=== PATIENT | male | born 1965 | race Caucasian/White ===

== ENCOUNTER 2019-11-16 14:54 | Inpatient (IN) | payer OTHER ==
[~2019-11-16] VITALS: Ht 172.7 cm; Wt 72.6 kg
[2019-11-16] MEDS ORDERED: PIPER-TAZ 3.375 GM 50 ML IV STA (15:28)
[2019-11-16] MEDS ORDERED: SODIUM CHLORIDE 0.9% 1000ML 1,000 ML IV STA (15:28)
[2019-11-16] MEDS ORDERED: ONDANSETRON HCL INJ 2MG/ML 2ML 2 MG/ML VIAL IV STA (15:28)
[2019-11-16] MEDS ORDERED: MORPHINE SULFATE INJ 4 MG/ML INJ 1ML IV STA (15:28)
--- NOTE | 2019-11-16 15:35 | Emergency Department Note ---
History of Present Illnes History of Present Illness Chief Complaint: Skin Rash or Abscess History of Present Illness This is a 54 year old male . c/o poss insect bite to r knee c/o pain to knee and lower leg noted redness swelling r knee and lower leg sx x 1 wk Historian: Patient Arrival Mode: Car Onset (how long ago): week(s) (1) Location: right knee / lower leg Quality: mod Radiation: non-radiation, back, neck, extremity, abdomen, periumbilical, flank, proximal, distal, other Severity: moderate Onset quality: gradual Duration (how long): week(s) (1 wk=) Progression: worsening Context: recent illness, recent surgery, recent immobilization, recent travel, trauma/injury, new medications, hx of DVT/PE, non-compliance w/ medications, other Relieving factors: none Exacerbating factors: none Treatments prior to arrival: none Past Medical/Family History Physician Review I have reviewed the patient's past medical and family history. Any updates have been documented here. Past Medical History Recent Fever: Yes Clinical Suspicion of Infectio: Yes New/Unexplained Change in Ment: No Past Medical History: COPD Other Surgery: legs from trauma age 15, lungs puncture, cheeks. Social History Alcohol Use: None Any Illegal Drug Use: No TB Exposure/Symptoms: No Physically hurt or threatened: No Family History Family history of heart diseas: No Other Last Tetanus: ood Any Pre-Existing Lines (PICC,: No Review of Systems Review of Systems Constitutional: no symptoms EENTM: no symptoms Cardiovascular: no symptoms Respiratory: no symptoms Gastrointestinal: no symptoms Genitourinary: no symptoms Musculoskeletal: joint pain (r knee), joint swelling (r knee), other (This is a 54 year old male . c/o poss insect bite to r knee c/o pain to knee and lower leg noted redness swelling r knee and lower leg sx x 1 wk ) Neurological: no symptoms Psychological: no symptoms Endocrine: no symptoms Hematological/Lymphatic: no symptoms Review of other systems All other systems reviewed and negative. Physical Exam Related Data Allergies: Coded Allergies: No Known Allergies (Unverified , 11/16/19) Vital signs reviewed: Yes Physical Exam CONSTITUTIONAL Constitutional: well-developed, well-nourished HENT HENT: normocephalic, atraumatic, oropharynx clear/moist, nose normal HENT L/R: left ext ear normal, right ext ear normal EYES Eyes: PERRL, conjunctivae normal NECK Neck: ROM normal PULMONARY Pulmonary: effort normal, breath sounds normal CARDIOVASCULAR Cardiovascular: regular rhythm, heart sounds normal, capillary refill normal, normal rate GASTROINTESTINAL Abdominal: soft, nontender, bowel sounds normal GENITOURINARY Genitourinary: exam deferred SKIN Skin: warm, dry, other (This is a 54 year old male . c/o poss insect bite to r knee c/o pain to knee and lower leg noted redness swelling r knee and lower leg sx x 1 wk exam c/w cellulitis lower leg and abscess r knee ) MUSCULOSKELETAL Musculoskeletal: ROM normal, tenderness, swelling, other (erythema r knee and lower ext - noted abscess to r knee ) NEUROLOGICAL Neurological: alert, oriented x 3, no gross motor or sensory deficits PSYCHOLOGICAL Psychological: mood/affect normal, judgement normal Exam - additional comments septic joint not suspected at this time no distal neuro deficits noted pedal pulses += bilat on exam noted abscess to r knee / noted cellulitis and swelling to r lower leg as well Results Laboratory Laboratory Laboratory Tests Test 11/16/19 15:30 White Blood Count 15.11 x10e3/uL (4.8-10.8) Red Blood Count 3.79 x10e6/uL (4.3-5.7) Hemoglobin 12.9 g/dL (14.0-18.0) Hematocrit 38.5 % (38.2-49.6) Mean Corpuscular Volume 101.6 fL (81-99) Mean Corpuscular Hemoglobin 34.0 pg (28-32) Mean Corpuscular Hemoglobin Concent 33.5 g/dL (31-35) Red Cell Distribution Width 12.6 % (11.7-14.4) Platelet Count 250 x10e3/uL (140-360) Neutrophils (%) (Auto) 83.1 % (38.7-80.0) Lymphocytes (%) (Auto) 8.1 % (18.0-39.1) Monocytes (%) (Auto) 8.1 % (4.4-11.3) Eosinophils (%) (Auto) 0.1 % (0.0-6.0) Basophils (%) (Auto) 0.2 % (0.0-1.0) Neutrophils # (Auto) 12.6 (2.1-6.9) Lymphocytes # (Auto) 1.2 (1.0-3.2) Monocytes # (Auto) 1.2 (0.2-0.8) Eosinophils # (Auto) 0.0 (0.0-0.4) Basophils # (Auto) 0.0 (0.0-0.1) Absolute Immature Granulocyte (auto 0.06 x10e3/uL (0-0.1) Prothrombin Time 13.1 seconds (11.9-14.5) Prothromb Time International Ratio 0.94 Activated Partial Thromboplast Time 29.7 seconds (23.8-35.5) Sodium Level 136 mmol/L (136-145) Potassium Level 3.6 mmol/L (3.5-5.1) Chloride Level 104 mmol/L (98-107) Carbon Dioxide Level 19 mmol/L (22-29) Anion Gap 16.6 mmol/L (8-16) Blood Urea Nitrogen 15 mg/dL (7-26) Creatinine 0.78 mg/dL (0.72-1.25) Estimat Glomerular Filtration Rate > 60 ML/MIN (60-) BUN/Creatinine Ratio 19 (6-25) Glucose Level 108 mg/dL (74-118) Lactic Acid Level 1.2 mmol/L (0.5-2.0) Calcium Level 9.2 mg/dL (8.4-10.2) Total Bilirubin 0.7 mg/dL (0.2-1.2) Aspartate Amino Transf (AST/SGOT) 19 IU/L (5-34) Alanine Aminotransferase (ALT/SGPT) 18 IU/L (0-55) Alkaline Phosphatase 82 IU/L (40-150) Creatine Kinase 73 IU/L (30-200) Creatine Kinase MB 0.80 ng/mL (0-5.0) Troponin I 0.018 ng/mL (0-0.300) Total Protein 7.4 g/dL (6.5-8.1) Albumin 3.4 g/dL (3.5-5.0) Globulin 4.0 g/dL (2.3-3.5) Albumin/Globulin Ratio 0.9 (0.8-2.0) Laboratory Tests Test 11/16/19 15:30 White Blood Count 15.11 x10e3/uL (4.8-10.8) Red Blood Count 3.79 x10e6/uL (4.3-5.7) Hemoglobin 12.9 g/dL (14.0-18.0) Hematocrit 38.5 % (38.2-49.6) Mean Corpuscular Volume 101.6 fL (81-99) Mean Corpuscular Hemoglobin 34.0 pg (28-32) Mean Corpuscular Hemoglobin Concent 33.5 g/dL (31-35) Red Cell Distribution Width 12.6 % (11.7-14.4) Platelet Count 250 x10e3/uL (140-360) Neutrophils (%) (Auto) 83.1 % (38.7-80.0) Lymphocytes (%) (Auto) 8.1 % (18.0-39.1) Monocytes (%) (Auto) 8.1 % (4.4-11.3) Eosinophils (%) (Auto) 0.1 % (0.0-6.0) Basophils (%) (Auto) 0.2 % (0.0-1.0) Neutrophils # (Auto) 12.6 (2.1-6.9) Lymphocytes # (Auto) 1.2 (1.0-3.2) Monocytes # (Auto) 1.2 (0.2-0.8) Eosinophils # (Auto) 0.0 (0.0-0.4) Basophils # (Auto) 0.0 (0.0-0.1) Absolute Immature Granulocyte (auto 0.06 x10e3/uL (0-0.1) Prothrombin Time 13.1 seconds (11.9-14.5) Prothromb Time International Ratio 0.94 Activated Partial Thromboplast Time 29.7 seconds (23.8-35.5) Sodium Level 136 mmol/L (136-145) Potassium Level 3.6 mmol/L (3.5-5.1) Chloride Level 104 mmol/L (98-107) Carbon Dioxide Level 19 mmol/L (22-29) Anion Gap 16.6 mmol/L (8-16) Blood Urea Nitrogen 15 mg/dL (7-26) Creatinine 0.78 mg/dL (0.72-1.25) Estimat Glomerular Filtration Rate > 60 ML/MIN (60-) BUN/Creatinine Ratio 19 (6-25) Glucose Level 108 mg/dL (74-118) Lactic Acid Level 1.2 mmol/L (0.5-2.0) Calcium Level 9.2 mg/dL (8.4-10.2) Total Bilirubin 0.7 mg/dL (0.2-1.2) Aspartate Amino Transf (AST/SGOT) 19 IU/L (5-34) Alanine Aminotransferase (ALT/SGPT) 18 IU/L (0-55) Alkaline Phosphatase 82 IU/L (40-150) Creatine Kinase 73 IU/L (30-200) Creatine Kinase MB 0.80 ng/mL (0-5.0) Troponin I 0.018 ng/mL (0-0.300) Total Protein 7.4 g/dL (6.5-8.1) Albumin 3.4 g/dL (3.5-5.0) Globulin 4.0 g/dL (2.3-3.5) Albumin/Globulin Ratio 0.9 (0.8-2.0) Lab results reviewed: Yes Imaging Impressions IMPRESSION: Prepatellar soft tissue swelling. Otherwise, no acute radiographic abnormality identified within the right knee. Signed by: Dr. Joseph Clark MD on 11/16/2019 4:30 PM Dictated By: JOSEPH CLARK MD Electronically Signed By: JOSEPH MOSELEY REPORT STATUS: Signed EXAM: CHEST SINGLE (PORTABLE) DATE: 11/16/2019 3:47 PM INDICATION: Spider bite COMPARISON: None FINDINGS/IMPRESSION: The trachea is midline. There are mildly increased bibasilar opacities which may reflect atelectasis. There is blunting of the costophrenic angles and trace effusions are possible. There is no evidence for large focal consolidation, pneumothorax, or significant volume effusion. The cardiomediastinal silhouette and pulmonary vasculature are within normal limits. No acute osseous abnormality is identified. The surrounding soft tissues are unremarkable. Signed by: Dr. Jospeh Clark MD on 11/16/2019 4:26 PM Dictated By: JOSEPH CLARK MD [id number] Transcribed By: ASHLY on 11/16/19 1626 Imaging Comments no gas on x-ray Critical Care Time Subsequent provider I assumed direction of critical care for this patient from another provider of my specialty. Assessment & Plan Reassessment Reassessment time: 15:33 Reassessment This is a 54 year old male . c/o poss insect bite to r knee c/o pain to knee and lower leg noted redness swelling r knee and lower leg sx x 1 wk - exam c/w cellulitis r lower leg and abscess to r knee - lab rad ordered pt medicated w/ zosyn vanc ns morphine zofran Assessment & Plan Final Impression: (1) Cellulitis (2) Abscess Assessment & Plan discussed lab rad results plan of care and need for admit spoke w/ Dr Cleary will admit spoke w/ Dr Rae will consult NPO after MN will take to surgery Depart Disposition: ADMITTED AUSTEN BERGER Nov 16, 2019 15:35
[2019-11-16 16:01] LABS: BASOPHILS % 0.2 % (0.0-1.0); EOSINOPHILS % 0.1 % (0.0-6.0); HEMATOCRIT 38.5 % (38.2-49.6); HEMOGLOBIN 12.9 g/dL (14.0-18.0); LYMPHOCYTES # (AUTO) 1.2 (1.0-3.2); LYMPHOCYTES % 8.1 % (18.0-39.1); MEAN CORPUSCULAR HGB CONC 33.5 g/dL (31-35); MEAN CORPUSCULAR VOLUME 101.6 fL (81-99); MONOCYTES # (AUTO) 1.2 (0.2-0.8); MONOCYTES % 8.1 % (4.4-11.3); NEUTROPHILS # (AUTO) 12.6 (2.1-6.9); NEUTROPHILS % 83.1 % (38.7-80.0); PLATELET COUNT 250 x10e3/uL (140-360); RED BLOOD COUNT 3.79 x10e6/uL (4.3-5.7); RED CELL DISTRIBUTION WIDTH 12.6 % (11.7-14.4)
[2019-11-16 16:22] LABS: ALANINE AMINOTRANSFERASE 18 IU/L (0-55); ALBUMIN 3.4 g/dL (3.5-5.0); ALBUMIN/GLOBULIN RATIO 0.9 (0.8-2.0); ALKALINE PHOSPHATASE 82 IU/L (40-150); ANION GAP 16.6 mmol/L (8-16); BLOOD UREA NITROGEN 15 mg/dL (7-26); BUN/CREATININE RATIO 19 (6-25); CALCIUM 9.2 mg/dL (8.4-10.2); CARBON DIOXIDE 19 mmol/L (22-29); CHLORIDE 104 mmol/L (98-107); CREATINE KINASE 73 IU/L (30-200); CREATININE, SERUM 0.78 mg/dL (0.72-1.25); EST GLOMERULAR FILTRATION RATE > 60 ML/MIN (60-); GLUCOSE 108 mg/dL (74-118); POTASSIUM 3.6 mmol/L (3.5-5.1); SODIUM 136 mmol/L (136-145)
[2019-11-16 16:26] LABS: INR 0.94; PROTHROMBIN TIME 13.1 seconds (11.9-14.5)
[2019-11-16 16:27] LABS: PARTIAL THROMBOPLASTIN TIME 29.7 seconds (23.8-35.5)
[2019-11-16] MEDS ORDERED: VANCOMYCIN 1GM/NS 250 ML 250 ML IV ONE ×2 (16:30→16:45)
--- NOTE | 2019-11-16 16:30 | Diagnostic Imaging Report ---
EXAM: CHEST SINGLE (PORTABLE) DATE: 11/16/2019 3:47 PM INDICATION: Spider bite COMPARISON: None FINDINGS/IMPRESSION: The trachea is midline. There are mildly increased bibasilar opacities which may reflect atelectasis. There is blunting of the costophrenic angles and trace effusions are possible. There is no evidence for large focal consolidation, pneumothorax, or significant volume effusion. The cardiomediastinal silhouette and pulmonary vasculature are within normal limits. No acute osseous abnormality is identified. The surrounding soft tissues are unremarkable. Signed by: Dr. Lemuel Clark MD on 11/16/2019 4:26 PM
--- NOTE | 2019-11-16 16:33 | Diagnostic Imaging Report ---
EXAM: KNEE RIGHT THREE VIEWS DATE: 11/16/2019 3:50 PM INDICATION: Swelling, spider bite. COMPARISON: None FINDINGS: There is no evidence for acute fracture or dislocation. Bony mineralization is within normal limits. No focal lytic or blastic abnormality is identified. The joint spaces are relatively well-preserved. Prepatellar soft tissue swelling noted without evidence for soft tissue gas, significant joint effusion, or radiopaque foreign body. IMPRESSION: Prepatellar soft tissue swelling. Otherwise, no acute radiographic abnormality identified within the right knee. Signed by: Dr. Lemuel Clark MD on 11/16/2019 4:30 PM
[2019-11-16] MEDS ORDERED: SODIUM CHLORIDE 0.9% 1000ML 1,000 ML IV SCH (16:45)
[2019-11-16] MEDS ORDERED: TETANUS/DIPHTHERIA TOX ADULT 0.5 ML SYR IM ONE (16:45)
[2019-11-16 16:54] LABS: B-TYPE NATRIURETIC PEPTIDE2 < 10.0 pg/mL (0-100)
--- OUTSIDE RECORDS SUMMARY | 2019-11-16 17:23 | XMS REPORT | Continuity of Care Document ---
Author Author [facility] t Organization [facility] Address [address] [place] [address] Phone Unavailable Care Team Providers Care Psychiatry Resident Name Role Phone Asked, Pcp No PCP Unavailable AB MOTTA, AUSTEN Attphys Unavailable Problems This patient has no known problems. Allergies, Adverse Reactions, Alerts This patient has no known allergies or adverse reactions. Social History Social Habit Start Date Stop Date Quantity Comments Source Sex Assigned At [facility] [place] Medications This patient has no known medications. Procedures This patient has no known procedures. Plan of Care Planned Activity Planned Date Details Comments Source Future Scheduled Test 2020-01-09 00:00:00 INFLUENZA VACCINE [code = INFLUENZA VACCINE] [facility] Future Scheduled Test 2013 00:00:00 COLONOSCOPY SCREEN ING [code = COLONOSCOPY SCREENING] [facility] Future Scheduled Test 2013 00:00:00 SHINGLES VACCINES (#1) [code = SHINGLES VACCINES (#1)] [facility] Results Test Description Test Time Test Comments Results Result Comments Source KNEE RIGHT THREE VIEWS 2019-11-16 16:26:00 [facility] [address] [place], [place] [address] Patient Name: JOE MINOR MR #: [id number] : 1965 Age/Sex: 54/M Req #: [id number] Adm Physician: Ordered by: AUSTEN BERGER MD, MD Report #: [id number] Location: ER Room/Bed: Procedure: DX/KNEE RIGHT THREE VIEWS Exam Date: 11/16/19 Exam Time: 1546 REPORT STATUS: Signed EXAM: KNEE RIGHT THREE VIEWS DATE: 11/16/2019 3:50 PM INDICATION: Swelling, spider bite. COMPARISON: None FINDINGS: There is no evidence for acute fracture or dislocation. Bony mineralization is within normal limits. No focal lytic or blastic abnormality is identified. The joint spaces are relatively well- preserved. Prepatellar soft tissue swelling noted without evidence for soft tissue gas, significant joint effusion, or radiopaque foreign body. IMPRESSION: Prepatellar soft tissue swelling. Otherwise, no acute radiographic abnormality identified within the right knee. Signed by: Dr. Lemuel Clark MD on 11/16/2019 4:30 PM Dictated By: LEMUEL CLARK MD 1630 Transcribed By: ASHLY on 11/16/19 1630 COPY TO: AUSTEN BERGER CHEST SINGLE (PORTABLE) 2019-11-16 16:25:00 [place] [address] Patient Name: JOE MINOR MR #: [id number] : 1965 Age/Sex: 54/M Req #: [id number] Adm Physician: Ordered by: AUSTEN BERGER MD, MD Report #: [id number] Location: ER Room/Bed: Procedure: DX/CHEST SINGLE (PORTABLE) Exam Date: 11/16/19 Exam Time: 1547 REPORT STATUS: Signed EXAM: CHEST SINGLE (PORTABLE) DATE: 11/16/2019 3:47 PM INDICATION: Spider bite COMPARISON: None FINDINGS/IMPRESSION: The trachea is midline. There are mildly increased bibasilar opacities which may reflect atelectasis. There is blunting of the costophrenic angles and trace effusions are possible. There is no evidence for large focal consolidation, pneumothorax, or significant volume effusion. The cardiomediastinal silhouette and pulmonary vasculature are within normal limits. No acute osseous abnormality is identified. The surrounding soft tissues are unremarkable. Signed by: Dr. Lemuel Clark MD on 11/16/2019 4:26 PM Dictated By: LEMUEL CLARK MD 1626 Transcribed By: ASHLY on 11/16/19 1626 COPY TO: AUSTEN BERGER
--- OUTSIDE RECORDS SUMMARY | 2019-11-16 17:23 | XMS REPORT | Clinical Summary ---
Author Author [facility] Organization [facility] Address Unknown Phone Unavailable Care Team Providers Care Medical Office Receptionist Name Role Phone Asked, No Pcp PCP Unavailable Allergies No Known Allergies Medications Not on file Active Problems Not on file Social History Date Tobacco Use Types Packs/Day Years Used Never Assessed Sex Assigned at Date Recorded Not on file Industry Job Start Date Occupation Not on file Not on file Not on file Travel End Travel History Travel Start No recent travel history available. 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
[2019-11-16 19:30] VITALS: BP 114/74
--- NOTE | 2019-11-16 19:30 | NUR ---
patient received to room 286 via wc from the emergency room at this time. ivf/iv vancomycin infusing without difficulty. vss. no c/o pain noted. admit assessment/history obtained.
[2019-11-16 20:11] VITALS: BP 114/74
[2019-11-16 21:32] VITALS: BP 114/74
[2019-11-16] MEDS ORDERED: ACETAMINOPHEN 325 MG TAB PO PRN (22:15)
[2019-11-16] MEDS ORDERED: ONDANSETRON HCL INJ 2MG/ML 2ML 2 MG/ML VIAL IV PRN (22:15)
[2019-11-16] MEDS: ONDANSETRON HCL INJ 2MG/ML 2ML 2 MG/ML VIAL IV PRN (22:30)
[2019-11-16] MEDS: PIPER-TAZ 3.375 GM 50 ML IV SCH (22:30)
[2019-11-16] MEDS: MORPHINE SULFATE INJ 4 MG/ML INJ 1ML IV PRN (22:30)
[2019-11-17] VITALS (8 sets, daily range): BP systolic 96–116; BP diastolic 61–74
[2019-11-17] MEDS: MORPHINE SULFATE INJ 4 MG/ML INJ 1ML IV PRN ×3 (02:50→14:25)
[2019-11-17] MEDS: ONDANSETRON HCL INJ 2MG/ML 2ML 2 MG/ML VIAL IV PRN ×2 (02:50→06:55)
[2019-11-17] MEDS: PIPER-TAZ 3.375 GM 50 ML IV SCH ×4 (04:27→22:33)
[2019-11-17] MEDS ORDERED: SODIUM CHLORIDE 0.9% 250ML 250 ML ONE (04:31)
[2019-11-17] MEDS: VANCOMYCIN 1GM/NS 250 ML 250 ML IV SCH ×2 (05:35→18:40)
[2019-11-17 06:17] LABS: BASOPHILS % 0.5 % (0.0-1.0); EOSINOPHILS # (AUTO) 0.2 (0.0-0.4); EOSINOPHILS % 1.8 % (0.0-6.0); HEMATOCRIT 35.8 % (38.2-49.6); HEMOGLOBIN 11.5 g/dL (14.0-18.0); LYMPHOCYTES # (AUTO) 1.4 (1.0-3.2); LYMPHOCYTES % 16.3 % (18.0-39.1); MEAN CORPUSCULAR HEMOGLOBIN 32.8 pg (28-32); MEAN CORPUSCULAR HGB CONC 32.1 g/dL (31-35); MONOCYTES # (AUTO) 0.8 (0.2-0.8); MONOCYTES % 9.6 % (4.4-11.3); NEUTROPHILS % 71.4 % (38.7-80.0); PLATELET COUNT 227 x10e3/uL (140-360); RED BLOOD COUNT 3.51 x10e6/uL (4.3-5.7); RED CELL DISTRIBUTION WIDTH 12.9 % (11.7-14.4)
--- NOTE | 2019-11-17 06:44 | NUR ---
RECEIVED BEDSIDE SHIFT REPORT FROM OFF GOING NURSE. PATIENT IS RESTING IN BED. NO ACUTE DISTRESS NOTED AT THIS TIME. CALL LIGHT WITHIN REACH. BED IN THE LOWEST POSITION.
[2019-11-17 06:46] LABS: ALANINE AMINOTRANSFERASE 14 IU/L (0-55); ALBUMIN 2.7 g/dL (3.5-5.0); ALBUMIN/GLOBULIN RATIO 0.8 (0.8-2.0); ALKALINE PHOSPHATASE 64 IU/L (40-150); ANION GAP 11.6 mmol/L (8-16); BLOOD UREA NITROGEN 15 mg/dL (7-26); BUN/CREATININE RATIO 22 (6-25); CALCIUM 8.2 mg/dL (8.4-10.2); CARBON DIOXIDE 21 mmol/L (22-29); CHLORIDE 109 mmol/L (98-107); CREATININE, SERUM 0.69 mg/dL (0.72-1.25); EST GLOMERULAR FILTRATION RATE > 60 ML/MIN (60-); GLUCOSE 94 mg/dL (74-118); MAGNESIUM 1.7 MG/DL (1.3-2.1); POTASSIUM 3.6 mmol/L (3.5-5.1); SODIUM 138 mmol/L (136-145)
--- NOTE | 2019-11-17 08:52 | Consultation ---
DATE OF CONSULTATION: 11/17/2019 HISTORY OF PRESENT ILLNESS: The patient is a 54-year-old male presents with complaints of pain and swelling around his right knee. Says he suffered an insect bite to the area. This was a few days ago. He said he tried to clean the area out himself with peroxide, but the swelling and redness worsened and the pain increased. The patient has not had any definite fever. He has not had similar problems in the past. He came to the emergency room, evaluation revealed a swelling around the right knee with no evidence of any joint involvement. PAST MEDICAL HISTORY: Significant only for previous surgeries on his left leg, previous surgeries to reconstruct fractured cheek, previous treatment of a collapsed lung. He has no other medical problems. MEDICATIONS: There were no current medications. ALLERGIES: HE HAS NO KNOWN ALLERGIES. FAMILY HISTORY: Noncontributory. SOCIAL HISTORY: The patient does not smoke cigarettes or drink alcohol. REVIEW OF SYSTEMS: As stated above. He has not had any definite fever. PHYSICAL EXAMINATION: GENERAL: The patient is awake and alert, in no distress. VITAL SIGNS: At this time are normal. He is afebrile. HEENT: The sclerae is not icteric. NECK: No masses. LUNGS: Equal breath sounds are clear bilaterally. CARDIAC: Regular rate and rhythm with no murmur. ABDOMEN: Soft. There is no tenderness. No mass. EXTREMITIES: There is erythema, patches around the right thigh and leg. There is skin necrosis about 1 cm in diameter over the right patella with swelling in the area. No purulent drainage is noted. Peripheral pulses were palpable. NEUROLOGIC: Grossly intact. LABORATORY TESTS: White blood count on arrival was 15.1, repeat is 8.5. There is a left shift of differential. Chemistries were essentially normal. ASSESSMENT: A 54-year-old male with abscess, with tissue necrosis of the right knee. Recommend continue IV antibiotics. A planned incision and drainage and debridement to be done in the operating room today. Procedure was explained to the patient. Thank you for asking me to see Mr. London. MD BRYAN Davis/MURRAY /[id number]
--- NOTE | 2019-11-17 12:30 | NUR ---
PATIENT OFF UNIT AT THIS TIME.
[2019-11-17] MEDS ORDERED: LIDOCAINE HCL 1% LOCAL INJ 20 ML VIAL ONE (12:45)
[2019-11-17] MEDS ORDERED: SODIUM CHLORIDE FLUSH 10 ML SYR INJ PRN (13:30)
--- NOTE | 2019-11-17 13:49 | NUR ---
PATIENT BACK TO UNIT AT THIS TIME. HE IS IN STABLE CONDITION.
[2019-11-17] MEDS ORDERED: ETOMIDATE 2 MG/ML 10 ML INJ IV ONE (14:21)
[2019-11-17] MEDS ORDERED: DEXAMETHASONE SOD PHOS INJ 4 MG/ML VIAL ONE (14:21)
[2019-11-17] MEDS ORDERED: SEVOFLURANE INHAL SOLN 250 ML PEN BTL ONE (14:21)
--- NOTE | 2019-11-17 14:23 | Operative Report ---
DATE OF PROCEDURE: 11/17/2019 SURGEON: Jairo Dudley MD PREOPERATIVE DIAGNOSIS: Abscess, right anterior knee area with tissue necrosis. POSTOPERATIVE DIAGNOSIS: Abscess, right anterior knee area with tissue necrosis. PROCEDURES: Incision and drainage abscess right knee area with excisional debridement of the skin from the right knee. ELECTRICAL EQUIPMENT ASSEMBLER: None. ANESTHESIA: General. INDICATIONS AND FINDINGS: The patient is a 54-year-old male, who presents with complaints of pain and swelling in the right knee area. At Surgery, the patient was found to have area of skin necrosis over the right anterior knee when there was abscess beneath this area, containing approximately 5 mL of purulent fluid. TECHNIQUE: After adequate general anesthesia, the patient is in supine position, and the right ear is prepped and draped in a sterile fashion with ChloraPrep solution. An elliptical incision was made encompassing the necrotic skin over the knee, this was area of only about 1 x 1.5 cm, it was carried down through the subcutaneous tissues, abscess cavity was entered and purulent fluid was drained, sample was taken for culture and sensitivity. About 5 mL of purulent fluid was drained. There were several sinus tracts, one that extended medially superiorly and one medially inferiorly, these were opened up and excision was extended to provide adequate drainage. The abscess cavity was irrigated with saline. Hemostasis was seen to be adequate, it was then packed open with half-inch iodoform gauze and sterile dressing applied. The patient tolerated the procedure well. Estimated blood loss was 10 mL. There were no complications. All counts were correct and the patient was taken to the recovery room in satisfactory condition. Jairo Dudley MD DWG/MODL /[id number]
--- NOTE | 2019-11-17 19:10 | NUR ---
patient received lying quietly in bed. patient appears to be sleeping. respirations even and unlabored. no signs of pain/discomfort noted. dressing to right lower extremity c,d,i. pm assessment complete. patient instructed to call for assistance when needed.
--- NOTE | 2019-11-17 19:10 | NUR ---
Bedside shift report given to oncoming nurse. Patient is resting in bed, sleeping, no s/s of acute distress noted. Family member at bedside. Call light within reach. Bed in the lowest position. Addendum: 11/17/19 at 1917 by ABEBA KEEN RN No family member at bedside.
[2019-11-17] MEDS: HYDROCODONE/APAP 5MG-325MG TAB PO PRN ×2 (19:25→23:50)
[2019-11-18] VITALS (7 sets, daily range): BP systolic 106–122; BP diastolic 58–78
[2019-11-18] MEDS: PIPER-TAZ 3.375 GM 50 ML IV SCH ×3 (04:12→16:39)
[2019-11-18] MEDS: HYDROCODONE/APAP 5MG-325MG TAB PO PRN ×5 (04:21→20:38)
--- NOTE | 2019-11-18 04:21 | NUR ---
patient medicated with norco 5/325mg po for c/o right knee pain 11/17 at this time per patients request.
[2019-11-18] MEDS: VANCOMYCIN 1GM/NS 250 ML 250 ML IV SCH ×2 (05:08→18:00)
--- NOTE | 2019-11-18 07:25 | NUR ---
PT SLEEPING NO S/S DISCOMFORT
--- NOTE | 2019-11-18 12:00 | NUR ---
PT INSISTED DSRG CHANGED .CHANGED ORERED,NO DRAINAGE NOTED,PACKING IN PLACE.
[2019-11-18] MEDS ORDERED: CLINDAMYCIN 300MG 50 ML IV SCH (18:00)
--- NOTE | 2019-11-18 18:31 | NUR ---
PT IN BED RESTING ,PAIN LEVEL 3 ,DINORA CD&I
--- NOTE | 2019-11-18 19:00 | NUR ---
patient received awake, alert, lying quietly in bed. no c/o pain noted. dressing to right knee c,d,i. pm assessment complete. patient instructed to call for assistance when needed.
[2019-11-18] MEDS: CLINDAMYCIN 300MG 50 ML IV SCH (20:38)
--- NOTE | 2019-11-18 20:38 | NUR ---
patient medicated with norco 5/325mg po for c/o right knee pain 11/17 at this time per patients request.
[2019-11-19] VITALS: BP 109/60
[2019-11-19] MEDS: CLINDAMYCIN 300MG 50 ML IV SCH ×2 (02:18→09:00)
[2019-11-19] MEDS: HYDROCODONE/APAP 5MG-325MG TAB PO PRN ×3 (02:25→11:00)
--- NOTE | 2019-11-19 02:25 | NUR ---
patient medicated with norco 5/325mg po for c/o right knee pain 11/17 at this time.
[2019-11-19 04:00] VITALS: BP 116/70
[2019-11-19] MEDS: VANCOMYCIN 1GM/NS 250 ML 250 ML IV SCH (06:00)
--- NOTE | 2019-11-19 06:42 | NUR ---
patient medicated with norco 5/325mg po for c/o right knee pain 11/17 at this time.
[2019-11-19 07:30] VITALS: BP 113/99
--- NOTE | 2019-11-19 07:30 | NUR ---
PT UP IN BED ,NO S/S DISCOMFORT,DINORA CD&I.
[2019-11-19 08:07] VITALS: BP 113/99
[2019-11-19] MEDS ORDERED: NICOTINE 14 MG/EA PATCH TOP SCH (09:00)
[2019-11-19] MEDS ORDERED: SENNA-S TABLET PO SCH (09:00)
--- NOTE | 2019-11-19 11:37 | NUR ---
PROVIDED CRUTCHES AND OBTAINED SIGNATURES
[2019-11-19 12:01] VITALS: BP 113/71
[2019-11-19] MEDS ORDERED: DOXYCYCLINE HY100 MG PO (12:58)
[2019-11-19] MEDS ORDERED: CLINDAMYCIN HC150 MG PO (12:58)
[2019-11-19] MEDS ORDERED: TYLENOL WITH C1 EACH PO (12:59)
[2019-11-19] MEDS ORDERED: NAPROXEN250 MG PO (12:59)
--- NOTE | 2019-11-19 15:00 | NUR ---
PT DISCHARGED HOME IV DCD WITHOUT REDNESS OR SWELLING,PRESCRIPTINS AND INSTRUCTIONS GIVEN COPY ON CHART,TRANSPORTED TO AUTO VIA W/C
== END 2019-11-19 15:00 | disposition home or self-care (01) | DRG 264 ==
LOC: ER 14:54 → ERHOLD 16:52 → MED/SURG3 19:44
PROVIDERS: ADMIT Internal Medicine; ATTEND Internal Medicine
PROC: 0JBN0ZZ Excision of Right Lower Leg Subcutaneous Tissue and Fascia, Open Approach (ICD-10-PCS; principal; 2019-11-16)
DX: I96 Gangrene, not elsewhere classified (principal); L02.415 Cutaneous abscess of right lower limb; B95.62 Methicillin resistant Staphylococcus aureus infection as the cause of diseases classified elsewhere; M17.11 Unilateral primary osteoarthritis, right knee; J44.9 Chronic obstructive pulmonary disease, unspecified; F17.200 Nicotine dependence, unspecified, uncomplicated
CPT/HCPCS: 36415; 71045; 80053; 80202; 82550; 82553; 83605; 83735; 83880; 84484; 85025; 85610; 85730; 87040; 87071; 87075; 87186; 87205; 87635; 90714; 93005; 93971; 99284; J1100; J2001; J2270; J2405; J2543; J3370; J7030; J7050

== ENCOUNTER 2024-10-21 12:07 | Emergency (ER) | payer OTHER ==
[~2024-10-21] VITALS: Ht 172.7 cm; Wt 72.6 kg
[~2024-10-21 12:07] MED LIST: CLINDAMYCIN HC150 MG PO; DOXYCYCLINE HY100 MG PO; NAPROXEN250 MG PO; TYLENOL WITH C1 EACH PO
[2024-10-21 12:56] LABS: BASOPHILS # (AUTO) 0.1 (0.0-0.1); BASOPHILS % 0.8 % (0.0-1.0); EOSINOPHILS # (AUTO) 0.1 (0.0-0.4); EOSINOPHILS % 0.9 % (0.0-6.0); HEMATOCRIT 43.1 % (38.2-49.6); HEMOGLOBIN 15.1 g/dL (14.0-18.0); LYMPHOCYTES # (AUTO) 1.1 (1.0-3.2); LYMPHOCYTES % 17.2 % (18.0-39.1); MEAN CORPUSCULAR HEMOGLOBIN 35.4 pg (28-32); MEAN CORPUSCULAR VOLUME 100.9 fL (81-99); MONOCYTES # (AUTO) 0.6 (0.2-0.8); MONOCYTES % 8.8 % (4.4-11.3); NEUTROPHILS # (AUTO) 4.6 (2.1-6.9); NEUTROPHILS % 71.8 % (38.7-80.0); PLATELET COUNT 261 x10e3/uL (140-360); RED BLOOD COUNT 4.27 x10e6/uL (4.3-5.7); RED CELL DISTRIBUTION WIDTH 13.1 % (11.7-14.4)
[2024-10-21 13:04] LABS: INR 0.87; PROTHROMBIN TIME 12.4 seconds (11.9-14.5)
[2024-10-21] MEDS: ONDANSETRON HCL INJ 2MG/ML 2ML 2 MG/ML VIAL IV STA (13:13)
[2024-10-21 13:14] LABS: ALBUMIN/GLOBULIN RATIO 1.2 (0.8-2.0); ANION GAP 17.8 mmol/L (8-16); BILIRUBIN,TOTAL 1.2 mg/dL (0.2-1.2); CALCIUM 9.1 mg/dL (8.4-10.2); CREATININE, SERUM 0.7 mg/dL (0.72-1.25); MAGNESIUM 1.6 MG/DL (1.3-2.1); POTASSIUM 3.8 mmol/L (3.5-5.1); TOTAL PROTEIN 7.3 g/dL (6.5-8.1)
[2024-10-21] MEDS: SODIUM CHLORIDE 0.9% 1000ML 1,000 ML IV STA (13:14)
[2024-10-21] MEDS: METHYLPREDNISOLONE SOD SUCC 125 MG/2ML VIAL IV STA (13:14)
[2024-10-21] MEDS: HYDROCODONE/APAP 7.5MG-325MG 1 EA TAB PO ONE (13:16)
[2024-10-21 13:20] LABS: TROPONIN I 0.008 ng/mL (0-0.300)
[2024-10-21 13:25] VITALS: PULSE 65; RESP 23; O2SAT 99
[2024-10-21] MEDS: ALBUTEROL/IPRATROPIUM 3 ML NEB NEB ONE (13:31)
[2024-10-21 13:41] LABS: CORONAVIRUS COVID-19 AG NEGATIVE (NEGATIVE)
[2024-10-21 13:46] VITALS: RESP 23
[2024-10-21 14:31] VITALS: PULSE 69
[2024-10-21] MEDS ORDERED: PREDNISONE50 MG PO (16:41)
[2024-10-21] MEDS ORDERED: DOXYCYCLINE HY100 MG PO (16:41)
[2024-10-21] MEDS ORDERED: PROAIR DIGIHAL90 MCG IH (16:41)
[2024-10-21] MEDS: LIDOCAINE 4% PATCH TP ONE (17:08)
[2024-10-21 17:09] VITALS: PULSE 60; RESP 18; TEMP 98.1; O2SAT 97
== END 2024-10-21 17:09 | disposition home or self-care (01) ==
LOC: ER 12:26
DX: R06.02 Shortness of breath (principal); J44.1 Chronic obstructive pulmonary disease with (acute) exacerbation; R42 Dizziness and giddiness; M54.50 Low back pain, unspecified; Z11.52 Encounter for screening for COVID-19; F17.210 Nicotine dependence, cigarettes, uncomplicated
CPT/HCPCS: 36415; 70450; 71045; 72131; 80053; 82550; 83735; 83880; 84484; 85025; 85610; 85730; 87426; 93005; 94640; 94799; 99284; J2405; J2919; J7030